=== PATIENT | female | born 1990 | race American Indian/Alaskan Native ===

== ENCOUNTER 2018-01-03 10:25 | Emergency (ER) | payer MEDICAID, OTHER ==
[2018-01-03] MEDS ORDERED: MOTRIN PO ONE (13:54)
--- NOTE | 2018-01-03 13:55 | Emergency Department Report ---
Blank Doc - Documentation Documentation: Patient is a 27-year-old female who states she's had a productive cough for approximately one week. Patient also states that for approximately a year she's had some lymph node swelling the left axilla. There is no drainage but she states this and should've been coughing last week she says is more painful. Patient without chest x-ray performed.
--- NOTE | 2018-01-03 15:33 | XRay Report ---
ROUTINE CHEST, TWO VIEWS: HISTORY: Productive cough. The trachea, heart, mediastinal contour, lung medina and bony thorax are unremarkable. IMPRESSION: Unremarkable chest x-ray.
--- NOTE | 2018-01-03 15:38 | Emergency Department Report ---
HPI - General Chief Complaint: Pain General Time Seen by Provider: 01/03/18 13:41 - HPI HPI: Patient is a 27-year-old female presents to ED complaining of cough and congestion for the past Patient also complains of left armpit pain intermittently for the past year ED Past Medical Hx - Past Medical History Hx Hypertension: No Hx Heart Attack/AMI: No Hx Congestive Heart Failure: No Hx Diabetes: No Hx Deep Vein Thrombosis: No Hx Renal Disease: No Hx Sickle Cell Disease: No Hx Seizures: No Hx Asthma: No Hx COPD: No Hx HIV: No - Social History Smoking Status: Never Smoker Substance Use Type: None - Medications Home Medications: Home Medications Medication Instructions Recorded Confirmed Last Taken Type Pnv with Ca,No.72/Iron/FA 1 tab PO DAILY 09/14/14 10/01/14 09/30/14 08:00 History [ Plus Tablet] Docusate Sodium [Colace] 100 mg PO BID PRN #60 capsule 10/03/14 Unknown Rx Ibuprofen [Motrin] 800 mg PO Q8H PRN #60 tablet 10/03/14 Unknown Rx oxyCODONE /ACETAMINOPHEN [Percocet 1 tab PO Q6HR PRN #45 tablet 10/03/14 Unknown Rx 5/325] Acetamin/Codeine 120-12Mg/5 ml 5 ml PO TID PRN #80 ml 01/03/18 Unknown Rx [Tylenol/Codeine] Ibuprofen [Motrin] 800 mg PO Q8HR PRN #30 tablet 01/03/18 Unknown Rx guaiFENesin [Mucinex] 600 mg PO BID #20 tab.er.12h 01/03/18 Unknown Rx ED Review of Systems ROS: Stated complaint: LEFT BREAT PAIN/LYMPHNODE SWOLLEN Other details as noted in HPI Constitutional: denies: chills, fever Eyes: denies: eye pain, eye discharge, vision change ENT: denies: ear pain, throat pain Respiratory: denies: cough, shortness of breath, wheezing Cardiovascular: denies: chest pain, palpitations Endocrine: no symptoms reported Gastrointestinal: denies: abdominal pain, nausea, diarrhea Genitourinary: denies: urgency, dysuria, discharge Musculoskeletal: denies: back pain, joint swelling, arthralgia Skin: denies: rash, lesions, pruritus Neurological: denies: headache, weakness, paresthesias Psychiatric: denies: anxiety, depression Hematological/Lymphatic: denies: easy bleeding, easy bruising Physical Exam - Physical Exam Vital Signs: Vital Signs 01/03/18 10:29 Temperature 97.9 F Pulse Rate 70 Respiratory 16 Rate Blood Pressure 113/64 O2 Sat by Pulse 98 Oximetry Physical Exam: GENERAL: Alert and oriented x3, no apparent distress, Normal Gait, atraumatic. HEAD: Head is normocephalic and a-traumatic. EYES: Extra ocular muscles are intact. Pupils are equal, round, and reactive to light and accommodation. EARS: symetrical, atraumatic, non tender, ear canal clear and moderate cerumen, tympanic membrance non inflamed. gross auditory nml bilaterally. NOSE: Nose symetrical, Nontender,Nares appeared normal. MOUTH:Mouth is well hydrated and without lesions. Tonsils nonerythematous or swollen, Uvula midline, Tongue not elevated. Mucous membranes are moist. Posterior pharynx clear, no exudate or lesions. Patent airways. NECK: Supple. Non edematous, No carotid bruits. No lymphadenopathy or thyromegaly. No C-spine tenderness LUNGS: Symetrical with respiration, No wheezing, no rales or crackles, CTAB. HEART: S1, S2 present, regular rate and rhythm without murmur, no rubs, no gallops. Non tender to palpation ABDOMEN: No organomegaly was noted,Positive bowel sounds, soft, and non- distended. . Nontender to palpation on all Quadrants, NO CVA tenderness. BACK: Full range of motion, no spinal tenderness, nontender to palpation. BREAST: Symetrical, Supple bilaterally, No Masses, lumps, lesions, ulcerations. GENITOURINARY: External genitalia without erythema, exudate or discharge. Vaginal vault is without discharge. Cervix is of normal color without lesion. Cervical os is closed. No bleeding noted. Uterus is noted to be of normal size and nontender. No cervical motion tenderness. No masses are palpated. The adnexa are without masses or tenderness. UROGENITAL: No scrotal mass, Scrotum non tender to palpation bilaterally, no hernia, no scars or penile discharge. EXTREMITIES/MUSCULOSKELETAL: No cyanosis, clubbing, rash, lesions or edema. Full ROM bilaterally. UE/LE Pulses 2+ bilaterally. LE and UE 5+ strength bilaterally, straight leg raise negative bilaterally NEUROLOGIC: The patient is cooperative with no focal neurologic deficits. Cranial nerves II through XII are grossly intact. Normal speech. Normal sensation in bilateral upper and lower extremities, No loss of sensation, No facial droop, Negative rhomberg. PSYCHIATRIC: Mood is congruent with affect, denies suicidal or homicidal ideations. SKIN: Warm and dry, No lesions, No ulceration or induration present. ED Course Vital Signs 01/03/18 10:29 Temperature 97.9 F Pulse Rate 70 Respiratory 16 Rate Blood Pressure 113/64 O2 Sat by Pulse 98 Oximetry ED Medical Decision Making - Radiology Data Radiology results: report reviewed, image reviewed XRay Report Signed Patient: SAMUEL OLIVO MR#: [id number] : 1990 Acct:[id number] Age/Sex: 27 / F ADM Date: 01/03/18 Loc: ED Attending Dr: Ordering Physician: CARLOTA SANTOS MD Date of Service: 01/03/18 Procedure(s): XR chest routine 2V Accession Number(s): [id number] cc: CARLOTA SANTOS MD Fluoro Time In Minutes: ROUTINE CHEST, TWO VIEWS: HISTORY: Productive cough. The trachea, heart, mediastinal contour, lung medina and bony thorax are unremarkable. IMPRESSION: Unremarkable chest x-ray. Transcribed By: TTR Dictated By: TAMMI RYAN JR, MD Electronically Authenticated By: TAMMI RYAN JR, MD Signed Date/Time: 01/03/18 1524 - Medical Decision Making 27-year-old female presents with upper respiratory infection ED course: Patient received Robitussin chest x-ray and [facility] spine ED Critical care attestation.: If time is entered above; I have spent that time in minutes in the direct care of this critically ill patient, excluding procedure time. ED Disposition Clinical Impression: URI (upper respiratory infection) Qualifiers: URI type: unspecified URI Qualified Code(s): J06.9 - Acute upper respiratory infection, unspecified Disposition: DC- TO HOME OR SELFCARE Is pt being admited?: No Does the pt Need Aspirin: No Condition: Stable Instructions: Cold Symptoms (ED), Upper Respiratory Infection (ED) Additional Instructions: Make sure to follow up with the primary care physician as discussed. Take all your medications as you've been prescribed. If you have any worsening symptoms or develop new symptoms please return to ED immediately. Prescriptions: Acetamin/Codeine 120-12Mg/5 ml [Tylenol/Codeine] 5 ml PO TID PRN #80 ml PRN Reason: Pain guaiFENesin [Mucinex] 600 mg PO BID #20 tab.er.12h Ibuprofen [Motrin] 800 mg PO Q8HR PRN #30 tablet PRN Reason: Pain Referrals: ENEIDA MOREJON MD [Primary Care Provider] - 3-5 Days DARRYL BENSON MD [Referring] - 3-[address] [facility] [Outside] - 3-5 Days [facility] [Outside] - 3-5 Days Forms: Accompanied Note, Work/School Release Form(ED) Time of Disposition: 16:10
[2018-01-03] MEDS ORDERED: ROBITUSSIN PO ONE (15:40)
[2018-01-03 16:46] VITALS: BP 108/72
== END 2018-01-03 16:45 | disposition home or self-care (01) ==
LOC: ED 10:25
DX: J06.9 Acute upper respiratory infection, unspecified (principal)
CPT/HCPCS: 71046; 99283

== ENCOUNTER 2018-06-08 08:57 | Emergency (ER) | payer SELFPAY ==
[2018-06-08 09:54] VITALS: BP 114/67
[2018-06-08] MEDS ORDERED: MOTRIN PO ONE (11:48)
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
== END 2018-06-08 14:23 | disposition home or self-care (01) ==
LOC: ED 08:57
DX: S76.012A Strain of muscle, fascia and tendon of left hip, initial encounter (principal); S20.212A Contusion of left front wall of thorax, initial encounter; S39.012A Strain of muscle, fascia and tendon of lower back, initial encounter; S13.4XXA Sprain of ligaments of cervical spine, initial encounter; V49.49XA Driver injured in collision with other motor vehicles in traffic accident, initial encounter; Y93.89 Activity, other specified; Y92.89 Other specified places as the place of occurrence of the external cause; Y99.8 Other external cause status
CPT/HCPCS: 36415; 72040; 72100; 72170; 84703; 99283

== ENCOUNTER 2019-08-25 14:44 | Emergency (ER) | payer SELFPAY ==
--- NOTE | 2019-08-25 15:08 | Event Note ---
ED Screening Note ED Screening Note: this morning N/V no diarrhea states she has had approximately 5 episodes of vomiting no fever no urinary sx LNMP: on depo, irregular cycles no PMhx no allergies to meds PSHx cholecystectomy 2014 This initial assessment/diagnostic orders/clinical plan/treatment(s) is/are subject to change based on patients health status, clinical progression and re- assessment by fellow clinical providers in the ED. Further treatment and workup at subsequent clinical providers discretion. Patient/guardian urged not to elope from the ED as their condition may be serious if not clinically assessed and managed. Initial orders include: labs
--- NOTE | 2019-08-25 15:37 | Emergency Department Report ---
Chief Complaint: Nausea/Vomiting/Diarrhea Stated Complaint: NAUSEA/VOMITING Time Seen by Provider: 08/25/19 15:05 - HPI History of Present Illness: Suzie is a very pleasant 29 year old female with history of , breast reduction and cholecystectomy who presents with nausea and vomiting since this morning. No abdominal pain. No vaginal discharge. No fever. Denies diarrhea. She may have had fast food on yesterday. I recommended outpatient urine test. Also recommended home therapies to combat the nausea. She understand to return to emergency departmentif if she has fever or abdominal pain or any new symptoms. Medical screening exam performed and completed. No evidence of acute emergent life or limb threatening condition at this time. MSE screening note: Focused history and physical exam performed. Due to findings the following was ordered: ED Disposition for MSE Clinical Impression: Nausea & vomiting, Encounter for medical screening examination Disposition: MED SCREENING EXAM-LEFT Condition: Stable
== END 2019-08-25 15:42 | disposition left against medical advice (07) ==
LOC: ED 14:44
DX: R11.2 Nausea with vomiting, unspecified (principal); Z53.21 Procedure and treatment not carried out due to patient leaving prior to being seen by health care provider